=== PATIENT | male | born 1990 | race African-American/Black ===

== ENCOUNTER 2017-12-02 00:20 | Emergency (ER) | payer SELFPAY ==
[2017-12-02] MEDS ORDERED: Acetaminophen 500 MG TAB ONE (00:49)
== END 2017-12-02 00:55 | disposition home or self-care (01) ==
LOC: SCSER 00:20
DX: J11.1 Influenza due to unidentified influenza virus with other respiratory manifestations (principal); B20 Human immunodeficiency virus [HIV] disease; G43.909 Migraine, unspecified, not intractable, without status migrainosus; F31.9 Bipolar disorder, unspecified
CPT/HCPCS: 87804; 99283

== ENCOUNTER 2018-04-26 12:09 | Emergency (ER) | payer SELFPAY | END 2018-04-26 12:33 | disposition home or self-care (01) | LOC: SCSER 12:09 | DX: J20.9 Acute bronchitis, unspecified (principal); J01.90 Acute sinusitis, unspecified; B20 Human immunodeficiency virus [HIV] disease; G43.909 Migraine, unspecified, not intractable, without status migrainosus; F31.9 Bipolar disorder, unspecified; F17.210 Nicotine dependence, cigarettes, uncomplicated | CPT/HCPCS: 99283 ==

== ENCOUNTER 2018-09-23 13:03 | Emergency (ER) | payer SELFPAY ==
[2018-09-23] MEDS ORDERED: Lidocaine 1% PF 5 ML VIAL ONE (13:46)
[2018-09-23] MEDS ORDERED: Azithromycin 250 MG TAB ONE (13:46)
[2018-09-23] MEDS ORDERED: cefTRIAXone\\ROCEPHIN 250 MG VIAL ONE (13:46)
[2018-09-23] MEDS ORDERED: Lidocaine 1% MPF 2 ML VIAL ONE (13:48)
--- NOTE | 2018-09-23 14:44 | RAD ---
CHEST 2 VIEWS: Date: 09/23/18 HISTORY: Cough. COMPARISON: 12/12/07. FINDINGS: Cardiac silhouette and pulmonary vasculature are unremarkable. Mediastinum is midline. No confluent a ir space consolidation, pneumothorax, or pleural fluid. IMPRESSION: No active cardiopulmonary abnormalities are demonstrated. POS: [facility]
[2018-09-26 01:02] LABS: Chlamydia by PCR DETECTED (NotDetected); GC by PCR DETECTED (NotDetected)
== END 2018-09-23 14:13 | disposition home or self-care (01) ==
LOC: SCSER 13:03
DX: N34.2 Other urethritis (principal); F31.9 Bipolar disorder, unspecified; F17.210 Nicotine dependence, cigarettes, uncomplicated
CPT/HCPCS: 71046; 87491; 87591; 96372; J0696; J2001